=== PATIENT | male | born 1955 | race Caucasian/White ===

== ENCOUNTER 2016-12-01 01:24 | Emergency (ER) | payer OTHER ==
[~2016-12-01] VITALS: Ht 160 cm; Wt 83.9 kg
[2016-12-01 01:25] VITALS: BP_SYST 132
[2016-12-01] MEDS ORDERED: IPRATROPIUM/ALBUTEROL SULFATE 3 ML AMPUL.NEB INH ONE (01:45)
[2016-12-01] MEDS ORDERED: ASPIRIN 81 MG TAB.CHEW PO ONE (01:45)
[2016-12-01] MEDS ORDERED: LORazepam 1 MG TABLET PO ONE (02:00)
[2016-12-01 02:06] LABS: BASOPHILS % (AUTO) 0.6 % (0.0-2.0); EOSINOPHILS # (AUTO) 0.2 K/uL (0.0-0.4); EOSINOPHILS % (AUTO) 3.8 % (0.0-4.0); HEMATOCRIT 37.1 % (36-54); LYMPHOCYTES # (AUTO) 1.7 K/uL (1.0-5.5); LYMPHOCYTES % (AUTO) 31.5 % (20.5-51.5); MEAN CORPUSCULAR HEMOGLOBIN 26 pg (27-31); MEAN CORPUSCULAR HGB CONC 32 % (32-36); MEAN CORPUSCULAR VOLUME 80 fL (79.0-98.0); MONOCYTES # (AUTO) 0.3 K/uL (0.0-1.0); MONOCYTES % (AUTO) 6.3 % (1.7-9.3); NEUTROPHILS # (AUTO) 3.2 K/uL (1.8-7.7); NEUTROPHILS % (AUTO) 57.8 % (40.0-70.0); PLATELET COUNT (AUTO) 182 K/uL (130-430); RED BLOOD CELL COUNT(AUTO) 4.66 MIL/uL (4.2-6.2); RED CELL DISTRIBUTION WIDTH 14.7 % (9.0-15.0); WHITE BLOOD COUNT (AUTO) 5.4 K/uL (4.8-10.8)
[2016-12-01 02:13] LABS: PROTHROMBIN TIME 10.4 SECS (9.5-12.5)
[2016-12-01 02:21] LABS: CALCIUM 9.4 mg/dL (8.4-11.0); CREATININE 1.16 mg/dL (0.55-1.30); POTASSIUM 3.9 mmol/L (3.5-5.1)
[2016-12-01 02:26] LABS: ALBUMIN 3.9 g/dL (3.4-4.8); TOTAL BILIRUBIN 0.3 mg/dL (0.0-1.0); TOTAL PROTEIN, SERUM 7.7 g/dL (6.4-8.3)
[2016-12-01 02:55] VITALS: BP_SYST 130
== END 2016-12-01 02:55 | disposition home or self-care (01) ==
LOC: SED 01:24
DX: F41.9 Anxiety disorder, unspecified (principal); E11.9 Type 2 diabetes mellitus without complications; J44.9 Chronic obstructive pulmonary disease, unspecified; Z87.891 Personal history of nicotine dependence; Z88.0 Allergy status to penicillin
CPT/HCPCS: 36415; 71010; 80053; 83880; 84484; 85025; 85610-TC; 93005; 94640; 99285

== ENCOUNTER 2018-07-12 18:02 | Emergency (ER) | payer OTHER ==
[~2018-07-12] VITALS: Ht 160 cm; Wt 86.2 kg
[2018-07-12 18:05] VITALS: BP_SYST 112
[2018-07-12] MEDS ORDERED: NACL 0.9% 1,000 ML IV ONE ×2 (18:14→19:00)
[2018-07-12] MEDS ORDERED: ASPIRIN 81 MG TAB.CHEW PO ONE (18:15)
[2018-07-12] MEDS ORDERED: NITROGLYCERIN 0.4 MG TAB.SUBL SL ONE (18:15)
[2018-07-12] MEDS ORDERED: CLOPIDOGREL BISULFATE 75 MG TABLET PO ONE (18:15)
[2018-07-12 18:47] LABS: CALCIUM 9.9 mg/dL (8.4-11.0); CREATININE 1.21 mg/dL (0.55-1.30)
[2018-07-12 18:50] LABS: PROTHROMBIN TIME 10.4 SECS (9.5-12.5)
[2018-07-12 18:52] LABS: BASOPHILS % (AUTO) 0.5 % (0.0-2.0); EOSINOPHILS # (AUTO) 0.2 K/uL (0.0-0.4); HEMATOCRIT 42.4 % (36-54); HEMOGLOBIN 13.4 g/dL (14.0-18.0); LYMPHOCYTES # (AUTO) 1.3 K/uL (1.0-5.5); LYMPHOCYTES % (AUTO) 27.1 % (20.5-51.5); MEAN CORPUSCULAR HEMOGLOBIN 25 pg (27-31); MEAN CORPUSCULAR HGB CONC 32 % (32-36); MEAN CORPUSCULAR VOLUME 79 fL (79.0-98.0); MONOCYTES # (AUTO) 0.3 K/uL (0.0-1.0); MONOCYTES % (AUTO) 6.3 % (1.7-9.3); NEUTROPHILS # (AUTO) 2.9 K/uL (1.8-7.7); NEUTROPHILS % (AUTO) 61.1 % (40.0-70.0); PLATELET COUNT (AUTO) 251 K/uL (130-430); RED BLOOD CELL COUNT(AUTO) 5.35 MIL/uL (4.2-6.2); RED CELL DISTRIBUTION WIDTH 15.1 % (9.0-15.0); WHITE BLOOD COUNT (AUTO) 4.7 K/uL (4.8-10.8)
[2018-07-12 18:55] LABS: TOTAL BILIRUBIN 0.3 mg/dL (0.0-1.0)
[2018-07-12] MEDS ORDERED: FAMOTIDINE PF 20 MG/2 ML VIAL IVP ONE (19:00)
[2018-07-12] MEDS ORDERED: METF1000 PO (19:16)
[2018-07-12] MEDS ORDERED: FINA5TAB3 PO (19:16)
[2018-07-12] MEDS ORDERED: ATOR40TA68 PO (19:16)
[2018-07-12] MEDS ORDERED: EMPA1TAB3 PO (19:16)
[2018-07-12] MEDS ORDERED: GLIM4TAB PO (19:16)
[2018-07-12] MEDS ORDERED: FENO160 PO (19:16)
[2018-07-12] MEDS ORDERED: PRO40 PO (19:16)
[2018-07-12] MEDS ORDERED: MORPHINE 2 MG/ML INJ. SYRINGE IVP PRN (19:45)
[2018-07-12 20:25] VITALS: BP_SYST 102
== END 2018-07-12 20:25 | disposition left against medical advice (07) ==
LOC: SED 18:02 → UNDOADMIN 19:32 → STU 19:32
DX: K85.90 Acute pancreatitis without necrosis or infection, unspecified (principal); E11.9 Type 2 diabetes mellitus without complications; Z79.899 Other long term (current) drug therapy
CPT/HCPCS: 36415; 71045; 80053; 82150; 83690; 84484; 85025; 85610; 85730; 93005; 96374; 99285; J3490; J7030

== ENCOUNTER 2019-08-14 13:04 | Inpatient (IN) | payer OTHER ==
[~2019-08-14] VITALS: Ht 160 cm; Wt 84.4 kg
[~2019-08-14 13:04] MED LIST: ATOR40TA68 PO; EMPA1TAB3 PO; FENO160 PO; FINA5TAB3 PO; GLIM4TAB PO; METF1000 PO; PRO40 PO
[2019-08-14] MEDS ORDERED: NACL 0.9% 1,000 ML IV ONE (13:11)
[2019-08-14 13:13] VITALS: BP_SYST 156
[2019-08-14] MEDS ORDERED: ONDANSETRON HCL 4 MG/2 ML VIAL IVP ONE ×3 (13:15→18:00)
[2019-08-14] MEDS ORDERED: MORPHINE 4 MG/ML INJ. SYRINGE IVP ONE (13:15)
[2019-08-14 13:32] LABS: BASOPHILS % (AUTO) 0.8 % (0.0-2.0); EOSINOPHILS # (AUTO) 0.2 K/uL (0.0-0.4); EOSINOPHILS % (AUTO) 4.5 % (0.0-4.0); HEMATOCRIT 40.5 % (36-54); HEMOGLOBIN 13.1 g/dL (14.0-18.0); LYMPHOCYTES # (AUTO) 1.5 K/uL (1.0-5.5); LYMPHOCYTES % (AUTO) 28.2 % (20.5-51.5); MEAN CORPUSCULAR HEMOGLOBIN 26 pg (27-31); MEAN CORPUSCULAR HGB CONC 32 % (32-36); MEAN CORPUSCULAR VOLUME 79 fL (79.0-98.0); MONOCYTES # (AUTO) 0.3 K/uL (0.0-1.0); NEUTROPHILS # (AUTO) 3.2 K/uL (1.8-7.7); NEUTROPHILS % (AUTO) 61.5 % (40.0-70.0); PLATELET COUNT (AUTO) 211 K/uL (130-430); WHITE BLOOD COUNT (AUTO) 5.2 K/uL (4.8-10.8)
[2019-08-14 13:46] LABS: ANION GAP 8 (5-15); CALCIUM 9.8 mg/dL (8.4-11.0); CHLORIDE 100 mmol/L (98-107); GLUCOSE 180 mg/dL (70-99); POTASSIUM 4.1 mmol/L (3.5-5.1); SODIUM SERUM 136 mmol/L (136-145); UREA NITROGEN, BLOOD 21 mg/dL (8-21)
[2019-08-14 13:54] LABS: ALANINE AMINOTRANSFERASE 46 U/L (12-78); ASPARTATE AMINOTRANSFERASE 29 U/L (10-37); LIPASE 245 U/L (73-393); TOTAL BILIRUBIN 0.4 mg/dL (0.0-1.0)
[2019-08-14 13:55] LABS: GFR AFRICAN AMERICAN 71 mL/min (>90)
[2019-08-14] MEDS ORDERED: fentaNYL CITRATE/PF 100 MCG/2 ML AMP IVP ONE ×3 (14:00→15:45)
[2019-08-14] MEDS ORDERED: LORazepam 2 MG/ML VIAL IVP ONE ×2 (14:30→16:30)
[2019-08-14 15:49] LABS: BILIRUBIN,URINE NEGATIVE (NEGATIVE); BLOOD, URINE NEGATIVE (NEGATIVE); CLARITY/URINE CLEAR (CLEAR); COLOR,URINE YELLOW (YELLOW); GLUCOSE,URINE 3+ (NEGATIVE); KETONES,URINE TRACE (NEGATIVE); LEUKOCYTE ESTERASE ,URINE NEGATIVE (NEGATIVE); NITRITE, URINE NEGATIVE (NEGATIVE); PROTEIN URINE NEGATIVE (NEGATIVE); UROBILINOGEN,URINE 0.2 (0.2-1.0)
[2019-08-14 16:05] LABS: BACTERIA,URINE RARE /HPF (None Seen); MUCUS,URINE None Seen /LPF (None Seen); RBC,URINE 0-3 /HPF (0-3); WBC,URINE 0-3 /HPF (0-3)
[2019-08-14] MEDS ORDERED: D5/0.45 NS 1,000 ML IV SCH (16:29)
[2019-08-15 01:59] VITALS: BP_SYST 108
[2019-08-15 08:00] VITALS: BP_SYST 128
[2019-08-15] MEDS ORDERED: LEVOFLOXACIN 500 MG/D5W 100 ML IV SCH (10:30)
[2019-08-15] MEDS ORDERED: ONDANSETRON HCL 4 MG/2 ML VIAL IVP PRN (10:30)
[2019-08-15] MEDS ORDERED: D5W 1,000 ML IV PRN (10:31)
[2019-08-15] MEDS ORDERED: GLUCOSE 15 GM GEL (in 37.5 GM TUBE) PO PRN (10:45)
[2019-08-15] MEDS ORDERED: DEXTROSE 50% JECT 50 ML DISP.SYRIN IVP PRN (10:45)
[2019-08-15] MEDS ORDERED: metroNIDAZOLE 500 mg/NS 100 ML IV SCH (14:00)
[2019-08-15] MEDS ORDERED: PANTOPRAZOLE SODIUM 40 MG/VIAL (PROTONIX) IVP SCH (21:00)
== END 2019-08-15 13:50 | disposition left against medical advice (07) | DRG 390 ==
LOC: SED 13:04 → SMU 16:29
PROVIDERS: ADMIT Internal Medicine; ATTEND Internal Medicine
DX: K56.600 Partial intestinal obstruction, unspecified as to cause (principal); E11.9 Type 2 diabetes mellitus without complications; E78.00 Pure hypercholesterolemia, unspecified; Z53.29 Procedure and treatment not carried out because of patient's decision for other reasons; Z90.49 Acquired absence of other specified parts of digestive tract; Z79.899 Other long term (current) drug therapy
CPT/HCPCS: 36415; 71045; 74250-TC; 80053; 81000-TC; 83690-TC; 84484; 85025; 85610-TC; 85730-TC; 86886; 86900; 86901; 93005; 96361; 96374; 96375; 96376; 99285; J1956; J3490

== ENCOUNTER 2020-03-04 22:54 | Emergency (ER) | payer OTHER ==
[~2020-03-04] VITALS: Ht 160 cm; Wt 81.6 kg
[2020-03-04 23:00] VITALS: BP_SYST 115
== END 2020-03-04 23:55 | disposition still patient (30) ==
LOC: SED 22:54
DX: R42 Dizziness and giddiness (principal); Z53.21 Procedure and treatment not carried out due to patient leaving prior to being seen by health care provider
CPT/HCPCS: 93005

== ENCOUNTER 2021-07-20 00:26 | Emergency (ER) | payer OTHER ==
[~2021-07-20] VITALS: Ht 160 cm; Wt 83.9 kg
[2021-07-20 00:26] VITALS: BP_SYST 144
[2021-07-20] MEDS ORDERED: ASPIRIN 325 MG TABLET PO ONE (00:45)
[2021-07-20] MEDS ORDERED: LIDOCAINE VISCOUS 2%, 15 ML UDC MM ONE (00:45)
[2021-07-20] MEDS ORDERED: MAG-AL HYDROX/SIMETH 30 ML UDC PO ONE (00:45)
--- NOTE | 2021-07-20 01:00 | NUR ---
Patient to ER bed Hallway to gown for evaluation. Side rails up.
--- NOTE | 2021-07-20 01:45 | NUR ---
Dr. Martinez chairside for pt maryloual
--- NOTE | 2021-07-20 01:50 | NUR ---
Pt [employer] to ED having been apprehended by police currently presents for medical clearance after reported onset of substernal chest tightness with radiation to the neck/bilateral shoulders with a pleuritic component onset approxi-9 PM. No change with exertion. Patient noted diaphoresis and palpitations. No lightheadedness or near syncope.
[2021-07-20 02:40] LABS: BASOPHILS % (AUTO) 0.6 % (0.0-2.0); EOSINOPHILS # (AUTO) 0.2 K/uL (0.0-0.4); EOSINOPHILS % (AUTO) 3.1 % (0.0-4.0); HEMOGLOBIN 12.8 g/dL (14.0-18.0); LYMPHOCYTES # (AUTO) 0.9 K/uL (1.0-5.5); LYMPHOCYTES % (AUTO) 14.1 % (20.5-51.5); MEAN CORPUSCULAR HEMOGLOBIN 26 pg (27-31); MEAN CORPUSCULAR HGB CONC 33 % (32-36); MEAN CORPUSCULAR VOLUME 80 fL (79.0-98.0); MONOCYTES # (AUTO) 0.4 K/uL (0.0-1.0); MONOCYTES % (AUTO) 6.3 % (1.7-9.3); NEUTROPHILS # (AUTO) 4.9 K/uL (1.8-7.7); NEUTROPHILS % (AUTO) 75.9 % (40.0-70.0); PLATELET COUNT (AUTO) 213 K/uL (130-430); RED BLOOD CELL COUNT(AUTO) 4.88 MIL/uL (4.2-6.2); RED CELL DISTRIBUTION WIDTH 16.5 % (9.0-15.0); WHITE BLOOD COUNT (AUTO) 6.4 K/uL (4.8-10.8)
[2021-07-20 02:54] LABS: CALCIUM 10.3 mg/dL (8.4-11.0); POTASSIUM 4.5 mmol/L (3.5-5.1)
[2021-07-20 03:00] LABS: TOTAL BILIRUBIN 0.4 mg/dL (0.0-1.0)
--- NOTE | 2021-07-20 03:21 | NUR ---
VSS no s/s of acute distress Resting on hallway bed with e learning designer deputies at bedside
[2021-07-20 03:28] LABS: ALBUMIN 4.2 g/dL (3.4-4.8); CREATININE 1.58 mg/dL (0.55-1.30)
[2021-07-20] MEDS ORDERED: HYDROcodone/ACETAMIN 5-325 MG TAB (NORCO/ VICODIN) PO ONE (04:45)
[2021-07-20] MEDS ORDERED: HYDR-3917 PO (05:00)
[2021-07-20] MEDS ORDERED: NAPR-686 PO (05:00)
[2021-07-20] MEDS ORDERED: HYDR-500 PO (05:00)
[2021-07-20 05:08] VITALS: BP_SYST 144
--- NOTE | 2021-07-20 05:08 | NUR ---
Patient given written and verbal discharge instructions and verbalizes understanding. ER MD discussed with patient the results and treatment provided. Patient in stable condition. ID arm band removed. Rx of [place],Naproxen, Hydroxyzine given. Patient educated on pain management and to follow up with PMD. Pain Scale 0/10 Opportunity for questions provided and answered. Medication side effect fact sheet provided.
== END 2021-07-20 05:08 | disposition home or self-care (01) ==
LOC: SED 00:26
DX: R07.89 Other chest pain (principal); E11.65 Type 2 diabetes mellitus with hyperglycemia; F41.9 Anxiety disorder, unspecified; N28.9 Disorder of kidney and ureter, unspecified; Z79.899 Other long term (current) drug therapy; Z79.84 Long term (current) use of oral hypoglycemic drugs
CPT/HCPCS: 36415; 71045; 80053; 83690; 84484; 85025; 93005; 99285; J2001

== ENCOUNTER 2022-01-08 09:24 | Outpatient (CLI) | payer OTHER ==
[~2022-01-08 09:24] MED LIST changes: +HYDR-3917 PO; +HYDR-500 PO; +NAPR-686 PO
[2022-01-08] MEDS ORDERED: BARIUM SULFATE 135 ML SUSP.RECON (E-Z-HD) PO ONE (09:53)
== END 2022-01-08 20:53 | disposition home or self-care (01) ==
LOC: SRD 09:24
PROVIDERS: ATTEND Internal Medicine Gastroenterology
DX: R13.10 Dysphagia, unspecified (principal)
CPT/HCPCS: 74220-TC

== ENCOUNTER 2022-04-12 06:58 | Inpatient (IN) | payer OTHER ==
[~2022-04-12] VITALS: Ht 160 cm; Wt 83.0 kg
[2022-04-12] MEDS ORDERED: CEFAZOLIN SOD 2 GM in D5W 50 ML IV ONE (07:00)
[2022-04-12] MEDS ORDERED: MIDAZOLAM HCL 5 MG/5 ML VIAL IVP ONE (09:00)
[2022-04-12] MEDS ORDERED: NS IRRIG SOLN 1000 ML IR ONE (09:00)
[2022-04-12] MEDS ORDERED: fentaNYL CITRATE 250 MCG/5 ML AMP IV ONE (09:00)
[2022-04-12] MEDS ORDERED: NS 1000 ML IV.SOLN IV ONE (09:00)
[2022-04-12] MEDS ORDERED: LIDOCAINE 2%, 20 ML MDV INJ ONE (09:00)
[2022-04-12] MEDS ORDERED: LR 1,000 ML IV.SOLN IV ONE (09:00)
[2022-04-12] MEDS ORDERED: ROCURONIUM BROMIDE 10 MG/ML (ZEMURON) IV ONE (09:00)
[2022-04-12] MEDS ORDERED: KETOROLAC TROMETHAMINE 30 MG VIAL IVP ONE (09:00)
[2022-04-12] MEDS ORDERED: ONDANSETRON HCL 4 MG/2 ML VIAL IVP ONE (09:00)
[2022-04-12] MEDS ORDERED: BUPIVACAINE /PF 0.25% 30 ML VIAL INJ ONE (09:00)
[2022-04-12] MEDS ORDERED: DESFLURANE 15 MIN GAS INH ONE (09:00)
[2022-04-12] MEDS ORDERED: SUGAMMADEX SODIUM 200 MG/2 ML VIAL IV ONE (09:00)
[2022-04-12] MEDS ORDERED: PROPOFOL 200MG/ 20ML VIAL (DIPRIVAN) IV ONE (09:00)
[2022-04-12] MEDS ORDERED: ACETAMINOPHEN I.V. 1000 MG 100 ML IV ONE (09:32)
[2022-04-12] MEDS ORDERED: BUPIVACAINE LIPOSOME/PF 266 MG/20 ML VIAL INFIL ONE (09:33)
[2022-04-12] MEDS ORDERED: MEPERIDINE HCL/PF 25 MG/ML DISP.SYRIN IVP PRN (09:45)
[2022-04-12] MEDS ORDERED: LABETALOL 100 MG/ 20ML VIAL IVP PRN (09:45)
[2022-04-12] MEDS ORDERED: HYDROmorphone 1 MG/ML INJ. CARTRIDGE IVP PRN ×2 (09:45)
[2022-04-12] MEDS ORDERED: NACL 0.9% 1,000 ML IV SCH (09:45)
[2022-04-12] MEDS ORDERED: hydrALAZINE HCL 20 MG/ML VIAL IVP PRN (09:45)
[2022-04-12] MEDS ORDERED: METOCLOPRAMIDE HCL 10 MG/2 ML VIAL IVP PRN (09:45)
[2022-04-12] MEDS ORDERED: ACETAMINOPHEN 325 MG TABLET PO PRN ×2 (12:45)
[2022-04-12] MEDS ORDERED: ONDANSETRON HCL 4 MG/2 ML VIAL IVP PRN (12:45)
[2022-04-12 14:33] VITALS: BP_SYST 116
[2022-04-12] MEDS: MORPHINE 4 MG INJ. 4 MG/ML VIAL IVP PRN ×2 (15:37→21:27)
[2022-04-12 15:47] VITALS: BP_SYST 116
[2022-04-12 16:00] VITALS: BP_SYST 121
[2022-04-12] MEDS: LR 1,000 ML IV SCH (18:13)
[2022-04-12] MEDS: CEFAZOLIN 1 GM IVPB PREMIX 50 ML IV SCH ×2 (18:13→22:58)
[2022-04-12 20:00] VITALS: BP_SYST 120
[2022-04-12] MEDS ORDERED: NAPROXEN 250 MG TABLET PO SCH (21:00)
[2022-04-12] MEDS: DOCUSATE SODIUM 100 MG CAPSULE PO SCH (21:27)
[2022-04-13] VITALS: BP_SYST 108
[2022-04-13] MEDS: LR 1,000 ML IV SCH ×2 (01:12→22:04)
[2022-04-13] MEDS: MORPHINE 4 MG INJ. 4 MG/ML VIAL IVP PRN ×5 (03:16→22:02)
[2022-04-13] MEDS: HYDROcodone/ACETAMIN 5-325 MG TAB (NORCO/ VICODIN) PO PRN ×2 (05:21→10:56)
[2022-04-13] MEDS ORDERED: HYDROmorphone 1 MG/ML INJ. CARTRIDGE IVP ONE (06:30)
[2022-04-13 07:00] VITALS: BP_SYST 116
[2022-04-13 08:00] VITALS: BP_SYST 116
[2022-04-13] MEDS: PANTOPRAZOLE SODIUM 40 MG TAB PO SCH (08:47)
[2022-04-13] MEDS: DOCUSATE SODIUM 100 MG CAPSULE PO SCH ×2 (08:47→20:44)
[2022-04-13] MEDS ORDERED: [UNRECOGNIZED DRUG - OTHER] PO SCH (09:00)
[2022-04-13] MEDS: GLYXAMBI PO SCH (09:00)
[2022-04-13] MEDS ORDERED: LINAGLIPTIN PO SCH (09:00)
[2022-04-13] MEDS ORDERED: EMPAGLIFLOZIN PO SCH (09:00)
[2022-04-13] MEDS ORDERED: IPRATROPIUM/ALBUTEROL SULFATE 3 ML AMPUL.NEB (DUONEB) ONE (10:46)
[2022-04-13] MEDS ORDERED: TAMSULOSIN HCL 0.4 MG CAP PO ONE (11:00)
[2022-04-13] MEDS ORDERED: GLUCOSE (DEXTROSE) ORAL GEL -Adults PO PRN (11:30)
[2022-04-13] MEDS ORDERED: DEXTROSE 50% JECT 50 ML DISP.SYRIN IVP PRN (11:30)
[2022-04-13] MEDS ORDERED: D5W 1,000 ML IV PRN (11:30)
[2022-04-13 12:15] VITALS: BP_SYST 123
[2022-04-13] MEDS: IPRATROPIUM/ALBUTEROL SULFATE 3 ML AMPUL.NEB (DUONEB) INH PRN ×2 (13:49→22:05)
[2022-04-13] MEDS ORDERED: FINASTERIDE 5 MG TABLET (PROSCAR) PO ONE (14:45)
[2022-04-13 16:29] VITALS: BP_SYST 115
[2022-04-13] MEDS: INSULIN REGULAR, HUMAN 100 UNITS/ML, 10 ML VIAL (humuLIN R) SUBCUT PRN (17:03)
[2022-04-13 23:46] VITALS: BP_SYST 117
[2022-04-14 00:36] VITALS: BP_SYST 119
[2022-04-14] MEDS: LR 1,000 ML IV SCH ×2 (04:36→14:45)
[2022-04-14] MEDS: MORPHINE 4 MG INJ. 4 MG/ML VIAL IVP PRN ×5 (04:37→21:50)
[2022-04-14] MEDS: IPRATROPIUM/ALBUTEROL SULFATE 3 ML AMPUL.NEB (DUONEB) INH PRN ×4 (04:54→23:54)
[2022-04-14 07:00] VITALS: BP_SYST 140
[2022-04-14 08:00] VITALS: BP_SYST 140
[2022-04-14] MEDS: PANTOPRAZOLE SODIUM 40 MG TAB PO SCH (08:47)
[2022-04-14] MEDS: FINASTERIDE 5 MG TABLET (PROSCAR) PO SCH (08:47)
[2022-04-14] MEDS: DOCUSATE SODIUM 100 MG CAPSULE PO SCH ×2 (08:47→20:14)
[2022-04-14] MEDS: TAMSULOSIN HCL 0.4 MG CAP PO SCH (08:47)
[2022-04-14] MEDS: GLYXAMBI PO SCH (08:49)
[2022-04-14 12:27] VITALS: BP_SYST 158
[2022-04-14] MEDS: guaiFENesin/DEXTROMETHORPHAN 10 ML UDC PO PRN ×2 (15:18→21:54)
[2022-04-14 16:16] VITALS: BP_SYST 155
[2022-04-14] MEDS: INSULIN REGULAR, HUMAN 100 UNITS/ML, 10 ML VIAL (humuLIN R) SUBCUT PRN ×2 (17:18→21:47)
[2022-04-14 20:12] VITALS: BP_SYST 125
[2022-04-15 00:13] VITALS: BP_SYST 159
[2022-04-15] MEDS: LR 1,000 ML IV SCH ×2 (03:15→16:00)
[2022-04-15] MEDS: MORPHINE 4 MG INJ. 4 MG/ML VIAL IVP PRN ×4 (03:28→23:31)
[2022-04-15 07:30] VITALS: BP_SYST 114
[2022-04-15] MEDS: GLYXAMBI PO SCH (09:00)
[2022-04-15] MEDS: TAMSULOSIN HCL 0.4 MG CAP PO SCH (09:15)
[2022-04-15] MEDS: PANTOPRAZOLE SODIUM 40 MG TAB PO SCH (09:15)
[2022-04-15] MEDS: DOCUSATE SODIUM 100 MG CAPSULE PO SCH ×2 (09:15→20:53)
[2022-04-15] MEDS: guaiFENesin/DEXTROMETHORPHAN 10 ML UDC PO PRN ×3 (09:42→23:30)
[2022-04-15] MEDS: FINASTERIDE 5 MG TABLET (PROSCAR) PO SCH (10:38)
[2022-04-15 11:26] VITALS: BP_SYST 134
[2022-04-15] MEDS: OXYCODONE/ACETAMINOPHEN 5-325 TABLET PO PRN (13:15)
[2022-04-15] MEDS ORDERED: BISACODYL 10 MG/SUPPOSITORY RC ONE (14:45)
[2022-04-15 16:30] VITALS: BP_SYST 127
[2022-04-15 20:21] VITALS: BP_SYST 145
[2022-04-15] MEDS: IPRATROPIUM/ALBUTEROL SULFATE 3 ML AMPUL.NEB (DUONEB) INH PRN (22:39)
[2022-04-16] MEDS: LR 1,000 ML IV SCH ×2 (04:15→17:31)
[2022-04-16 08:12] VITALS: BP_SYST 128
[2022-04-16] MEDS: PANTOPRAZOLE SODIUM 40 MG TAB PO SCH (09:30)
[2022-04-16] MEDS: DOCUSATE SODIUM 100 MG CAPSULE PO SCH ×3 (09:30→20:59)
[2022-04-16] MEDS: FINASTERIDE 5 MG TABLET (PROSCAR) PO SCH (09:30)
[2022-04-16] MEDS: TAMSULOSIN HCL 0.4 MG CAP PO SCH (09:30)
[2022-04-16] MEDS: MORPHINE 4 MG INJ. 4 MG/ML VIAL IVP PRN (09:31)
[2022-04-16] MEDS: GLYXAMBI PO SCH (09:31)
[2022-04-16 11:57] VITALS: BP_SYST 125
[2022-04-16] MEDS: INSULIN REGULAR, HUMAN 100 UNITS/ML, 10 ML VIAL (humuLIN R) SUBCUT PRN ×3 (12:03→21:20)
[2022-04-16] MEDS: IPRATROPIUM/ALBUTEROL SULFATE 3 ML AMPUL.NEB (DUONEB) INH PRN (12:25)
[2022-04-16 12:39] LABS: BASOPHILS % (AUTO) 0.5 % (0.0-2.0); EOSINOPHILS # (AUTO) 0.2 K/uL (0.0-0.4); EOSINOPHILS % (AUTO) 4.4 % (0.0-4.0); HEMOGLOBIN 10.2 g/dL (14.0-18.0); LYMPHOCYTES # (AUTO) 0.5 K/uL (1.0-5.5); LYMPHOCYTES % (AUTO) 13.7 % (20.5-51.5); MEAN CORPUSCULAR HEMOGLOBIN 25 pg (27-31); MEAN CORPUSCULAR HGB CONC 33 % (32-36); MEAN CORPUSCULAR VOLUME 77 fL (79.0-98.0); MONOCYTES # (AUTO) 0.3 K/uL (0.0-1.0); MONOCYTES % (AUTO) 6.4 % (1.7-9.3); NEUTROPHILS # (AUTO) 2.9 K/uL (1.8-7.7); PLATELET COUNT (AUTO) 229 K/uL (130-430); RED BLOOD CELL COUNT(AUTO) 4.04 MIL/uL (4.2-6.2); RED CELL DISTRIBUTION WIDTH 16.4 % (9.0-15.0); WHITE BLOOD COUNT (AUTO) 3.9 K/uL (4.8-10.8)
[2022-04-16 13:23] LABS: ALBUMIN 2.8 g/dL (3.4-4.8); CALCIUM 9.6 mg/dL (8.4-11.0); CREATININE 1.01 mg/dL (0.55-1.30); POTASSIUM 4.2 mmol/L (3.5-5.1); TOTAL BILIRUBIN 0.6 mg/dL (0.0-1.0)
[2022-04-16] MEDS: guaiFENesin/DEXTROMETHORPHAN 10 ML UDC PO PRN ×2 (13:48→23:26)
[2022-04-16 14:35] VITALS: BP_SYST 125
[2022-04-16 16:05] VITALS: BP_SYST 126
[2022-04-16] MEDS: metFORMIN HCL 500 MG TABLET PO SCH ×2 (17:23→17:49)
[2022-04-16] MEDS: GLIMEPIRIDE 2 MG TABLET PO SCH (17:24)
[2022-04-16] MEDS: OXYCODONE/ACETAMINOPHEN 5-325 TABLET PO PRN (19:58)
[2022-04-16] MEDS: METOCLOPRAMIDE HCL 10 MG TABLET PO ONE ×2 (19:58→20:59)
[2022-04-16 20:00] VITALS: BP_SYST 128
[2022-04-16] MEDS ORDERED: POLYETHYLENE GLYCOL 3350, 17 GM/ POWD.PACK PO ONE (21:30)
[2022-04-16] MEDS ORDERED: NALOXONE HCL 0.4 MG/ML AMP (NARCAN) IVP PRN (21:30)
[2022-04-16] MEDS ORDERED: MORPHINE 2 MG/ML INJ. SYRINGE IVP PRN (21:30)
[2022-04-16] MEDS ORDERED: MORPHINE 4 MG INJ. 4 MG/ML VIAL IVP PRN (23:15)
[2022-04-16] MEDS: cephALEXin 250 MG CAPSULE PO SCH (23:26)
[2022-04-17 00:38] VITALS: BP_SYST 136
[2022-04-17] MEDS: cephALEXin 250 MG CAPSULE PO SCH ×3 (06:13→18:22)
[2022-04-17] MEDS: LR 1,000 ML IV SCH (06:14)
[2022-04-17 07:56] VITALS: BP_SYST 104
[2022-04-17] MEDS: metFORMIN HCL 500 MG TABLET PO SCH ×2 (08:37→18:23)
[2022-04-17] MEDS: GLIMEPIRIDE 2 MG TABLET PO SCH ×2 (08:38→18:23)
[2022-04-17] MEDS: PANTOPRAZOLE SODIUM 40 MG TAB PO SCH (08:38)
[2022-04-17] MEDS: TAMSULOSIN HCL 0.4 MG CAP PO SCH (08:38)
[2022-04-17] MEDS: DOCUSATE SODIUM 100 MG CAPSULE PO SCH (08:38)
[2022-04-17] MEDS: FINASTERIDE 5 MG TABLET (PROSCAR) PO SCH (08:38)
[2022-04-17] MEDS: GLYXAMBI PO SCH (08:47)
[2022-04-17] MEDS: OXYCODONE/ACETAMINOPHEN 5-325 TABLET PO PRN (08:54)
[2022-04-17] MEDS ORDERED: POLYETHYLENE GLYCOL 3350, 17 GM/ POWD.PACK PO ONE (09:15)
[2022-04-17 11:18] VITALS: BP_SYST 116
[2022-04-17] MEDS: INSULIN REGULAR, HUMAN 100 UNITS/ML, 10 ML VIAL (humuLIN R) SUBCUT PRN (12:26)
[2022-04-17] MEDS: guaiFENesin/DEXTROMETHORPHAN 10 ML UDC PO PRN (12:27)
[2022-04-17 16:40] VITALS: BP_SYST 119
[2022-04-17 18:33] VITALS: BP_SYST 125
[2022-04-17] MEDS ORDERED: MULTIVITAMINS TAB 1 TABLET PO SCH (21:00)
[2022-04-18] MEDS ORDERED: POLYETHYLENE GLYCOL 3350, 17 GM/ POWD.PACK PO SCH (09:00)
== END 2022-04-17 21:30 | disposition home health service (06) | DRG 354 ==
LOC: SDS 06:58 → SMU 06:59 → SDS 04-13 13:45 → SMU 04-13 13:46
PROVIDERS: ADMIT Surgery; ATTEND Surgery
PROC: 0WUF0JZ Supplement Abdominal Wall with Synthetic Substitute, Open Approach (ICD-10-PCS; principal; 2022-04-12 09:12)
DX: K43.2 Incisional hernia without obstruction or gangrene (principal); E44.1 Mild protein-calorie malnutrition; K66.0 Peritoneal adhesions (postprocedural) (postinfection); Z20.822 Contact with and (suspected) exposure to COVID-19; Z90.49 Acquired absence of other specified parts of digestive tract
CPT/HCPCS: 36415; 71045; 74018; 80053; 82962; 85025; 87205-TC; 88302; 94640; 94760; C1781; C9290; J0131; J0690; J1170; J1815; J1885; J2001; J2250; J2270; J2405; J2704; J3010; J3490; J7030; J7060; J7120; J8597; U0003